=== PATIENT | female | born 1990 | race Caucasian/White ===

== ENCOUNTER → 2023-11-24 06:37 | Day surgery (SDC) | payer OTHER, SELFPAY | LOC: GI 06:37 | PROVIDERS: ATTENDING PHYSICIAN Internal Medicine Gastroenterology | DX: K62.5 Hemorrhage of anus and rectum (principal); K63.3 Ulcer of intestine; K64.8 Other hemorrhoids; R19.4 Change in bowel habit; K62.1 Rectal polyp | CPT/HCPCS: 45380; 88305; 88341; 88342 ==

== ENCOUNTER → 2024-05-17 09:42 | Outpatient (REF) | payer OTHER, SELFPAY | LOC: WDC 09:42 | PROVIDERS: ATTENDING PHYSICIAN Physician Assistant | DX: N63.24 Unspecified lump in the left breast, lower inner quadrant (principal); Z80.3 Family history of malignant neoplasm of breast | CPT/HCPCS: 76642; 77062; 77066 ==

== ENCOUNTER → 2024-09-25 10:36 | Outpatient (REF) | payer OTHER, SELFPAY | LOC: RCS 10:36 | PROVIDERS: ATTENDING PHYSICIAN Nurse Practitioner Family | DX: R00.2 Palpitations (principal) | CPT/HCPCS: 93225; 93226 ==